=== PATIENT | female | born 1985 | race Caucasian/White ===

== ENCOUNTER 2017-11-15 00:04 | Inpatient (IN) | payer OTHER ==
[~2017-11-15] VITALS: Ht 175.3 cm; Wt 77.1 kg
[2017-11-15 20:03] LABS: *URINE HCG, QUAL NEGATIVE (NEGATIVE)
[2017-11-15 20:17] LABS: *AMPHETAMINE, URINE NEGATIVE (NEGATIVE); *BARBITURATE, URINE NEGATIVE (NEGATIVE); *CANNABINOID, URINE POSITIVE (NEGATIVE); *COCCAINE, URINE NEGATIVE (NEGATIVE); *OPIATE, URINE NEGATIVE (NEGATIVE); *PHENCYCLIDINE SCREEN,URINE NEGATIVE (NEGATIVE)
--- NOTE | 2017-11-15 20:30 | NUR ---
Pre-admission Assessment Patient is a 32-year old, female, seen at intake, AAOx4, no SOB and with anxiety, flushed skin, sweating and tremors noted at this time. Patient also observed to be fidgety and appears tense. Patient verbalized that she feels tired. Discussed with patient admission policies of the unit. Patient is coherent and able to respond to questions appropriately. Pt is ambulatory with steady gait. Patient reported she uses mainly Xanax daily for 7 years and only was drinking [place] Iced Tea and snorting Cocaine from 11/09/2017 to 11/12/2017. Vital signs taken and as follows: KB=764/70, P=79, O2 sat on RA=98%, RR=20, T=98.4. Pt verbalized instructions and teachings regarding disposal of narcotic and other controlled home meds, unit protocols such as taking of vital signs Q4H and handling and disposal of contraband.
[2017-11-15 21:00] VITALS: BP 124/70
--- NOTE | 2017-11-15 21:30 | NUR ---
Admission Note Patient is a 32-year-old, female, arrived to the floor at 2117 to be admitted for medically supervised withdrawal from Benzodiazepines (Xanax). The patient does not appear intoxicated and patient verbalized that she is starting to experience withdrawal symptoms as well as symptoms as per wine sales representative, as follows: flushed skin, increasing anxiety, easily agitated, tremors, sweating and feeling of fatigue. Patient appears calm but noted to be melancholic, isolative and in a depressed mood. Pt is AAOx4, and verbalized ""I want to get off my addiction and clear my head." The patient states that withdrawal symptoms include "anxiety, emotional volatility, nausea, vomiting, flushed skin, sweating, hot flushes, agitated and confusion." Patient stated that she has a history of withdrawal-induced seizures from Benzodiazepines withdrawal. First time she had a seizure was when she was 18 years old and the last time she had one was in 2014. Overall, patient stated that she had about 10-15 seizures. Patient also informed that she has only been to 1 detox and treatment center, [facility], for 3 times. First time was in 2011 for treatment and stayed for 1 month. The second time was in 2013 and stayed for 3 months. The last was in 2014 and stayed for 1 week because she was only there for detox. A week after being discharged, patient verbalized that she relapsed. Patient states current substance use as follows: 1. Xanax- Patient stated that she first used at age 18 and for the past 7 years, she has been using 6-8 mg PO daily. Last use was on the night before admission, 11/14/2017 in the evening, 8 mg PO. 2. Alcohol- Patient stated that she only consumed [place] Iced Tea from 11/09/2017 to 11/12/2017. She was consuming about "4-5 glasses" every night on the said days. She first had a drink at age 13. Before this drinking episode, patient verbalized that she was not drinking for over a year. Last drink was on 11/12/2017, 5 glasses of [place] Iced Tea. 3. Cocaine- Patient stated that she first used at age 15. She verbalized that she has not been using this substance for over a year and only used between 11/09/17 to 11/12/17 because she was drinking. Per patient, she was snorting about 1 gm per night and last used on 11/12/2017 evening time. 4. Cannabis-Patient stated that she first used at age 13. Patient stated that she only smokes this substance about 1-3 times in a year. Last use was on 11/12/2017, evening time. Of note, patient was previously using Heroin, had a history of Heroin overdose in 2009 and has been sober since then. She stated her mother sells narcotics and benzodiazepines illegally and that's the reason why she was introduced to Xanax early on. Her sister from Heroin OD last 2010 thus she was presribed Xanax by her doctor 0.25 mg daily PRN. Eventually, she started to "abuse" the medication up until her current level of dose. Patient not able to recall name of Primary Care Physician. She is seeking treatment today because ""I feel like if I don't go for detox, I will sink deeper and lose everything that I have worked hard for in the past several years." Patient stated that she loves her job and fears that her addiction will interfere with her keeping her job. Patient verbalized: "I don't want to lose my job just because of my addiction. I love my job and I want to stop this before it spirals down." His longest sobriety was 3 months, achieved in 2013 when she was at [facility]. Patient admitted that "When I started drinking and using Cocaine last weekend, I felt like that was the start of me losing control. I don't want to go back to the dreaded years in my early 20s." Patient verbalized that she is interested in going to a treatment center after his stay at [facility]. Patient's main support system are her 2 sisters and friends. Vital signs are taken and as follows: BP: 124/70, HR: 79, RR: 20, SpO2: 98%, Temp: 98.4. Patient c/o nausea but refused PRN medication at this time. Pulse is palpable and regular. Respirations are even and unlabored. Lung sounds clear. Bowel sounds active x4 quadrants. Last bowel movement was in the afternoon of 11/14/2017. Per patient, her bowel movement is mostly every other day. Skin is intact. Pt follows a regular diet at home. NKA. Full Code. Height is 5'9", 170 lbs per standing scale. Patient stated that she smokes about 1/2 to 1 pack of cigarettes daily. Patient stated that she has no Psychiatrist and she is not able to recall her Primary Care Physician. Pt stated that her medical history besides Withdrawal-induced Seizures are Anxiety, Depression, Kidney stones, Heroin Overdose (2009), 5150 in 2009 related to Heroin Overdose and Thyroid Cancer to which she has Thyroidectmomy in 2010 which was followed by Chemotherapy and Radation. No c/o abdominal pain at this time. Home meds were reconciled. Educated patient about plan of care including detox, group therapy, individual therapy, and discharge planning. Encouraged patient to be open and honest and verbalized support for patient in her recovery. Upon admission to the floor, CIWA=11. Dr. Pichardo was at the unit and was able to assess the patient. Will continue to monitor.
[2017-11-15] MEDS ORDERED: LEVO112T5 PO (21:56)
[2017-11-15] MEDS ORDERED: CYAN10009 PO (21:56)
[2017-11-15] MEDS ORDERED: LORAZEPAM 1 MG TABLET PO PRN ×2 (22:45)
[2017-11-15] MEDS ORDERED: LORAZEPAM 2 MG/1 ML VIAL IM PRN (22:45)
[2017-11-15] MEDS ORDERED: LOPERAMIDE HCL 2 MG CAPSULE PO PRN ×2 (22:45)
[2017-11-15] MEDS ORDERED: MAG HYDROX/AL HYDROX/SIMETH 30 ML LIQUID UDC PO PRN (22:45)
[2017-11-15] MEDS ORDERED: ACETAMINOPHEN 325 MG TABLET PO PRN (22:45)
[2017-11-15] MEDS ORDERED: DICYCLOMINE HCL 20 MG TABLET PO PRN (22:45)
[2017-11-15] MEDS ORDERED: MIRALAX 17 GM POWD.PACK PO PRN (22:45)
[2017-11-15 22:54] LABS: BASOPHILS # (AUTO) 0.1 K/uL (0.0-8.0); BASOPHILS % (AUTO) 0.7 % (0.0-2.0); EOSINOPHILS # (AUTO) 0.1 K/uL (0.0-0.7); EOSINOPHILS % (AUTO) 0.9 % (0.0-7.0); HEMOGLOBIN 11.9 g/dL (10.9-14.3); LYMPHOCYTES # (AUTO) 1.3 K/uL (20.0-40.0); LYMPHOCYTES % (AUTO) 16.3 % (20.5-51.5); MEAN CORPUSCULAR HEMOGLOBIN 26.1 uug (24.7-32.8); MEAN CORPUSCULAR HGB CONC 33 g/dL (32.3-35.6); MEAN CORPUSCULAR VOLUME 78.6 fL (75.5-95.3); MONOCYTES # (AUTO) 0.5 K/uL (2.0-10.0); MONOCYTES % (AUTO) 6.7 % (0.0-11.0); NEUTROPHILS # (AUTO) 6.1 K/uL (1.8-8.9); NEUTROPHILS % (AUTO) 75.4 % (38.5-71.5); PLATELET COUNT (AUTO) 277 K/uL (179-408); RED BLOOD CELL COUNT(AUTO) 4.58 MIL/uL (3.63-4.92); WHITE BLOOD COUNT (AUTO) 8.1 K/uL (3.8-11.8)
[2017-11-15 23:08] LABS: BILIRUBIN,TOTAL 0.2 mg/dL (0.2-1.0); CREATININE 0.7 mg/dL (0.6-1.3); MAGNESIUM 2.1 mg/dL (1.8-2.4); POTASSIUM 3.4 mmol/L (3.5-5.1); TOTAL PROTEIN, SERUM 7.1 g/dL (6.4-8.2)
[2017-11-15] MEDS ORDERED: LORAZEPAM 1 MG TABLET PO ONE (23:30)
[2017-11-15] MEDS ORDERED: POTASSIUM CHLORIDE 20 MEQ TAB.PRT.SR PO ONE (23:30)
[2017-11-16] VITALS: BP 118/65
[2017-11-16] MEDS ORDERED: TRAZODONE 50 MG TABLET PO ONE
--- NOTE | 2017-11-16 00:20 | NUR ---
RN note KDur and Trazodone Patient's K level=3.4, replaced with KDur 40 MEQs PO once. Patient also verbalized inability to sleep. MD ordered Trazodone 50 mg PO once.
[2017-11-16 01:16] LABS: THYROID STIMULATING HORMONE 0.079 mIU/mL (0.358-3.740)
[2017-11-16 04:00] VITALS: BP 110/69
--- NOTE | 2017-11-16 07:11 | NUR ---
End of Shift Patient verbalized "feeling comfortable" at this time. Patient noted to be increasingly anxious, with blunted affect and poor concentration. Patient has a depressed mood and is melancholic. Fall, universal, seizure and safety precautions in place. Call light within reach. Latest CIWA-7, slept for . Endorsed to AM shift nurse for continuity of care.
--- NOTE | 2017-11-16 07:55 | NUR ---
Start of Shift Note Pt. is a 32 y/o female admitted for the medically managed withdrawal from Benzodiazepines. Pt. was placed on a 6 day Phenobarbital taper to manage withdrawal symptoms. Pt. has a history of withdrawal induced seizures, heroin overdose, depression, and anxiety. Endorse pt.s behavior from previous shift as anxious, depressed with a blunted affect. Pt. received in room. Pt. laying in bed with eyes open. Pt. rooms is cluttered with personal belongings and pt. is disheveled. Pt. presents a anxious, restless, and medication focused. Educated pt. on treatment plan medication regiment. Pt. verbalized understanding. Pt. A/O X 4 at this time. Encouraged pt. to verbalize concerns and emotions. Last CIWA of 7. Safety measures in place. Will continue to monitor pt.s behavior for safety.
[2017-11-16 08:00] VITALS: BP 133/83
--- NOTE | 2017-11-16 08:00 | NUR ---
CIWA Assessment/MD communication Pt. presents as restless, anxious, diaphoresis, and agitated. Pt is complaining of mild nausea. CIWA at this time 17. MD aware. Will continue to monitor for safety.
[2017-11-16] MEDS: PHENOBARBITAL 60 MG TABLET PO SCH ×4 (08:52→21:32)
[2017-11-16] MEDS: MULTIVITAMINS,THERAPEUTIC TABLET PO SCH (08:52)
[2017-11-16] MEDS ORDERED: TUBERCULIN,PURIF.PROT.DERIV. 5 TU/0.1 ML TEST ID ONE (09:00)
[2017-11-16] MEDS ORDERED: 6 DAY PHENOBARBITAL TAPER -SERENITY PROTOCOL PO PRN (09:00)
[2017-11-16] MEDS: HYDROXYZINE PAMOATE 25 MG CAPSULE PO PRN (10:07)
[2017-11-16] MEDS: CLONIDINE HCL 0.1 MG TABLET PO PRN (10:07)
--- NOTE | 2017-11-16 10:07 | NUR ---
PRN Medication Pt. reports increased feelings of anxiety, and states she feels a a sense of dread. Pt. is siting on her bed constantly moving her legs. Gave pt. Clonidine 0.1mg and Vistaril 50mg at this time to manage withdrawal symptoms. Will continue to monitor pt.'s behavior for safety and medication effectiveness.
--- NOTE | 2017-11-16 11:07 | NUR ---
PRN Medication Re-Assessment Pt. in bed reading a book and able to sit still. Pt. states she feels much better. Medication effective. Will continue to monitor pt.'s behavior for safety.
[2017-11-16 12:00] VITALS: BP 128/72
--- NOTE | 2017-11-16 12:00 | NUR ---
REBEKAH Assessment/MD communication Pt. presents with agitation, anxiety, diaphoresis, and restlessness. Pt. still complains of mild nausea. REBEKAH Jason MD aware. Will continue to monitor pt.'s behavior for safety.
[2017-11-16 16:00] VITALS: BP 93/55
--- NOTE | 2017-11-16 16:00 | NUR ---
WA Assessment/MD communication Pt. still complains of anxiety and agitations but now denies any feelings of nausea. Pt. still presents with a diaphoretic brow and restlessness CIWA 14. MD aware. Will continue to monitor pt. for safety.
--- NOTE | 2017-11-16 19:27 | NUR ---
End of Shift Note Pt. is a 32 y/o female admitted for the medically managed withdrawal from Benzodiazepines. Pt. was placed on a 6 day Phenobarbital taper to manage withdrawal symptoms. Pt. has a history of withdrawal induced seizures, heroin overdose, depression, and anxiety. Pt. presented throughout shift with anxiety restlessness, agitation and diaphoresis. Pt. compliant with treatment plan and medication regiment. Pt. given PRN Vistaril, and Clonidine to manage her withdrawal symptoms. Last CIWA of 14. Safety measures in place. Will endorse pt.s care to oncoming shift.
[2017-11-16 20:00] VITALS: BP 104/58
--- NOTE | 2017-11-16 20:00 | NUR ---
Start of Shift Note Received a 32 y/o female px, admitted for medically supervised withdrawal from Xanax, and ETOH. Px was placed on 6 day Phenobarbital taper started 11/16/2017. Px is tolerating it. Last reported CIWA 14 by AM shift nurse. During the rounds at 2000, px is awake on bed in fowlers position, watching TV. Px appears anxious with good eye contact. Few drinks noted on top of the bed side table. Px stated My anxiety is 5/10. I dont have pain but I have restless legs. The doctor just came here and he agreed to give me Trazodone tonight. Px also complained of flush/chills and irritation like under her skin. Bed on lowest position, side rails up 2x, and call light within reach. Well continue to monitor.
--- NOTE | 2017-11-16 20:00 | NUR ---
CIWA 11 Px stated that her anxiety is 5/10, has mild irritation sensation underneath her skin. Px also complained of flush/chills,and sweats.
[2017-11-16] MEDS: MAGNESIUM HYDROXIDE 30 ML LIQUID UDC PO PRN (21:32)
--- NOTE | 2017-11-16 21:32 | NUR ---
PRN MOM Px received milk of magnesia 30 ml PO for 4 days constipation. We'll continue to monitor.
--- NOTE | 2017-11-16 22:08 | NUR ---
MD COMMUNICATION Pt requesting Trazodone for sleep. MD ordered Trazodone 50 mg QHS. Order noted and carried out.
--- NOTE | 2017-11-16 22:32 | NUR ---
Reassessment of CIWA CIWA 11. Px stated that her anxiety is stiil moderate, has mild irritation sensation underneath her skin and complained of flush/chills,and sweats.
[2017-11-16] MEDS: TRAZODONE 50 MG TABLET PO SCH (23:19)
--- NOTE | 2017-11-16 23:19 | NUR ---
New Order Trazodone. Px received Trazodone 50 mg/tab, 1 tab HS PO for insomnia. We'll continue to monitor.
[2017-11-17] VITALS: BP 121/77
--- NOTE | 2017-11-17 | NUR ---
CIWA 10 Px stated that her anxiety is still there, has mild irritation sensation underneath her skin. Px also complained of flush/chills,and sweats.
[2017-11-17 04:00] VITALS: BP 118/71
--- NOTE | 2017-11-17 04:00 | NUR ---
CIWA deferred CIWA deferred due to the px is asleep, to assess if the px is awake per doctor's order. We'll continue to monitor.
--- NOTE | 2017-11-17 07:10 | NUR ---
End of Shift Note During the shift at 2132, px received MOM 30 ml as PRN medication for 4 days constipation. At 2319, new order Trazodone 50 mg HS started and given PO. Px oral intake is 1500 ml, voided 4x, with No BM. Px slept for 7 hours. At 0630, px is asleep on bed in left side lying position. Last CIWA 10. Bed on lowest position, side rails up 2x, and call light within reach. Well continue to monitor. Px endorsed to AM shift nurse.
[2017-11-17 08:00] VITALS: BP 112/60
--- NOTE | 2017-11-17 08:15 | NUR ---
START OF SHIFT: Received Pt. A/O X 4. She presents with anxious mood and congruent affect. She is disheveled. She is hyperverbal. Phenobarbital taper in progress to manage s/s of w/d. CIWA 10. She reports anxiety , intermittent sweats,restlessness and irritability. She states her appetite is fair.She is fidgety. Encouraged increased fluids to assist in facilitating detox process. Encouraged group attendance to improve coping skills and prevent relapse.Will continue to monitor and offer support.
[2017-11-17] MEDS ORDERED: LEVOTHYROXINE SODIUM 112 MCG TABLET PO SCH ×2 (09:00)
[2017-11-17] MEDS: MULTIVITAMINS,THERAPEUTIC TABLET PO SCH (09:24)
[2017-11-17] MEDS: PHENOBARBITAL 60 MG TABLET PO SCH ×3 (09:24→20:54)
[2017-11-17 12:00] VITALS: BP 143/86
--- NOTE | 2017-11-17 12:00 | NUR ---
CIWA 10 She is fidgety with fine tremors. She c/o intermittent sweats,restlessness and anxiety.
--- NOTE | 2017-11-17 12:35 | NUR ---
Verbal Communication: New order to increase dose of Synthroid from 112mcg PO daily to 224mcg PO daily. New order noted and carried out.
[2017-11-17] MEDS: HYDROXYZINE PAMOATE 25 MG CAPSULE PO PRN (14:30)
--- NOTE | 2017-11-17 14:32 | NUR ---
PRN Vistaril 50 mg PO given for reported anxiety and restlessness.
--- NOTE | 2017-11-17 15:32 | NUR ---
PRN Vistaril effective. She states she feels less anxious. Will continue to monitor
[2017-11-17 16:00] VITALS: BP 159/89
--- NOTE | 2017-11-17 16:00 | NUR ---
CIWA 12. She c/o anxiety,restlessness ,sweats and irritability.
--- NOTE | 2017-11-17 18:45 | NUR ---
END OF SHIFT: Pt continues on Phenobarbital taper to manage s/s of w/d which include anxiety,restlessness ,fine tremors,intermittent sweats and irritability. CIWA 12. She attended some groups and interacted with peers. She was compliant with increased fluids and had a bowel movement. Sz precautions noted. Will pass shift report to oncoming night nurse.
--- NOTE | 2017-11-17 19:30 | NUR ---
START OF SHIFT Patient is a 32-year-old female admitted on 11/15/17 for benzodiazepine withdrawal. Patient is currently on a 6-day Phenobarbital taper, tolerating well; today is day 2. Per endorsement, patient's last CIWA was 12. Patient received PRN Vistaril today as well as PRN Miralax; Vistaril noted to be effective, Miralax mildly effective. Upon assessment, patient is alert and oriented x4. Patient reports feeling anxious and restless, mild generalized body aches and mild headache as well. Patient is on fall and seizure precautions with her most recent seizure being 2014, related to benzo withdrawal. Safety measures are in place, side rails up x2, bed locked in low position, call light within reach. Will continue to monitor.
[2017-11-17 20:00] VITALS: BP 140/90
--- NOTE | 2017-11-17 20:00 | NUR ---
CIWA Patient has a current CIWA score of 15. She complains of anxiety, restlessness, intermittent nausea, headache 4/10 and generalized body aches.
[2017-11-17] MEDS: MAGNESIUM HYDROXIDE 30 ML LIQUID UDC PO PRN (20:54)
--- NOTE | 2017-11-17 20:54 | NUR ---
PRN MILK OF MAG Patient reports that she has been constipated for "the past five days." She says that she had a "very small" BM earlier today but continues to feel constipated. PRN MOM given PO. Safety measures in place, side rails up x2, bed locked in low position, call light within reach. Will monitor for effectiveness.
--- NOTE | 2017-11-17 21:54 | NUR ---
PRN MILK OF MAG REASSESSMENT Patient states that she has not had a BM since taking MOM at 2053. SN encouraged patient to drink plenty of fluids. Safety measures in place, side rails up x2, bed locked in low position, call light within reach. Will continue to monitor.
[2017-11-17] MEDS: TRAZODONE 50 MG TABLET PO SCH (22:35)
[2017-11-18] VITALS (7 sets, daily range): BP systolic 109–156; BP diastolic 66–104
--- NOTE | 2017-11-18 | NUR ---
CIWA DEFERRED CIWA deferred at this time due to patient sleeping; to be assessed and scored while patient is awake. Safety measures in place, side rails up x2, bed locked in low position, call light within reach. Will continue to monitor.
--- NOTE | 2017-11-18 04:00 | NUR ---
CIWA DEFERRED CIWA deferred due to patient sleeping; will be assessed and scored when patient is awake. Safety measures in place, side rails up x2, bed locked in low position, call light within reach. Will continue to monitor.
[2017-11-18] MEDS: LEVOTHYROXINE SODIUM 112 MCG TABLET PO SCH (06:36)
--- NOTE | 2017-11-18 07:12 | NUR ---
END OF SHIFT Patient is a 32-year-old female admitted on 11/15/17 for benzodiazepine withdrawal. Patient is currently on a 6-day Phenobarbital taper, tolerating well; today will be day 3. Patient's last CIWA was 15. Patient received PRN Milk of Magnesia for constipation; noted to be effective. Patient slept for 8 hours, total intake of 1,535mL, void x3, stool x1. Patient is on fall and seizure precautions with her most recent seizure being 2014, related to benzo withdrawal. Safety measures are in place, side rails up x2, bed locked in low position, call light within reach. Will endorse to day shift.
--- NOTE | 2017-11-18 07:45 | NUR ---
START OF SHIFT Pt is a 32 yr old female, AA&Ox4. Pt was admitted on 11/15/17 for Benzo withdrawal and is on 6 day Phenobarbital taper as ordered. medication siva well. Received report from police shift commander nurse. Pt received MOM PRN for constipation. Medication was effective, pt was able to have BM x1. Last CIWA score was 15 at 1999. Pt is currently c/o fatigue, anxiety and headache. Pt states she had difficulty sleeping during the night and was restless. Skin is intact, warm and moist to touch. Pt was encouraged increase fluid intake. Safety precautions observed. Call light is within reach. Will continue to monitor.
[2017-11-18] MEDS: PHENOBARBITAL 60 MG TABLET PO SCH ×4 (09:21→21:24)
[2017-11-18] MEDS: MULTIVITAMINS,THERAPEUTIC TABLET PO SCH (09:21)
[2017-11-18] MEDS: CLONIDINE HCL 0.1 MG TABLET PO PRN ×2 (13:11→21:56)
--- NOTE | 2017-11-18 13:14 | NUR ---
Client was prompted to attend daily group counseling sessions.
--- NOTE | 2017-11-18 13:15 | NUR ---
PRN GIVEN pt was noted with increase BP of 156/104. Pt stated of having increase anxiety after group. Clonidine 0.1mg PO PRN was given for increase BP and anxiety. Medication siva well. Will continue to monitor.
--- NOTE | 2017-11-18 14:15 | NUR ---
PRN RE-ASSESSMENT Clonidine was effective. Pt's BP was 145/89 and pt states anxiety level subsided. Will continue to monitor.
--- NOTE | 2017-11-18 19:20 | NUR ---
END OF SHIFT Pt is a 32 yr old female, AA&Ox4. Pt was admitted on 11/15/17 for Benzo withdrawal and is on 6 day Phenobarbital taper as ordered. medication siva well. Pt has been cooperative with medication regimen and plan of care. Pt has been observed attending group therapy during the day. Pt has been noted with increase anxiety and was noted with episodes of crying. Pt stated group therapy triggered some emotions. Pt was noted with fine tremors on BUE. Pt received Clonidine 0.1mg PO PRN for increase BP and anxiety. Medication was effective. Last CIWA score was 12 at 1600. Pt was encouraged increase fluid intake for hydration. Safety precautions observed. Call light is within reach. Endorsed to double end trimmer nurse to continue with care.
--- NOTE | 2017-11-18 19:27 | NUR ---
START OF SHIFT Patient is a 32-year-old female admitted on 11/15/17 for benzodiazepine withdrawal. Patient is currently on a 6-day Phenobarbital taper, tolerating well; today is day 3. Per endorsement, patient's last CIWA was 12. Patient received PRN Clonidine for increased BP. Upon assessment, patient is alert and oriented x4, tearful and emotional. Patient states that today was definitely harder than I expected. I forgot all about the emotional part of detox. Patient reports that earlier today she snapped at someone and was embarrassed. She apologized but then felt uncomfortable for the rest of the day. Patient reports feeling anxious and restless, wanting to leave but stating I know its good that Im here. Patient also reports a constant headache but states, It might just be all the cigarettes I smoked today. Patient is on fall and seizure precautions with her most recent seizure being 2014, related to benzo withdrawal. Safety measures are in place, side rails up x2, bed locked in low position, call light within reach. Will continue to monitor.
--- NOTE | 2017-11-18 20:00 | NUR ---
CIWA 15 Patient has a current CIWA of 15; she reports feeling anxious and agitated, complains of headache, fine tremors and diaphoresis noted. Will administer meds as ordered and will continue to monitor.
[2017-11-18] MEDS: TRAZODONE 50 MG TABLET PO SCH (21:56)
--- NOTE | 2017-11-18 21:56 | NUR ---
PRN CLONIDINE Patient was noted to have elevated blood pressure, 138/100 with HR of 80. Patient also reports anxiety and agitation. PRN Clonidine 0.1mg given PO. Safety measures in place, side rails up x2, bed locked in low position, call light within reach. Will monitor for effectiveness.
--- NOTE | 2017-11-18 22:56 | NUR ---
PRN CLONIDINE REASSESSMENT Patient reports that she feels "a little more relaxed" and is ready to sleep. Current BP is 126/82, HR 74, respirations even and unlabored at this time. PRN Clonidine effective. Safety measures in place, side rails up x2, bed locked in low position, call light within reach. Will continue to monitor.
[2017-11-19] VITALS: BP 122/75
--- NOTE | 2017-11-19 | NUR ---
CIWA DEFERRED CIWA deferred at this time due to patient sleeping; to be assessed and scored while patient is awake. Safety measures in place, side rails up x2, bed is locked in lowest position, call light within reach. Will continue to monitor.
--- NOTE | 2017-11-19 02:30 | NUR ---
CIWA 13 Patient is awake, reading her book. Current CIWA 13 for anxiety, agitation/restlessness, mild headache, fine tremors, and on/off sweating. Will continue to monitor.
[2017-11-19 04:00] VITALS: BP 111/65
--- NOTE | 2017-11-19 04:00 | NUR ---
CIWA DEFERRED CIWA deferred at this time due to patient sleeping; to be assessed and scored while patient is awake, per protocol. Safety measures are in place, side rails up x2, bed locked in low position, call light within reach. Will continue to monitor.
--- NOTE | 2017-11-19 06:00 | NUR ---
END OF SHIFT Patient is a 32-year-old female admitted on 11/15/17 for benzodiazepine withdrawal. Patient is currently on a 6-day Phenobarbital taper, tolerating well; today will be day 4 of taper. Patients last CIWA was 13. Patient received PRN Clonidine last night for anxiety and agitation; noted to be effective. Patient slept for 5 hours, total intake of 1,800mL, void x4, stool x0. Patient is on fall and seizure precautions with her most recent seizure being 2014, related to benzo withdrawal. Safety measures are in place, side rails up x2, bed locked in low position, call light within reach. Endorsed to Teresa Melgoza LVN, at 0600.
[2017-11-19 06:07] LABS: HEPATITIS B SURFACE AG Negative (Negative)
[2017-11-19] MEDS: LEVOTHYROXINE SODIUM 112 MCG TABLET PO SCH (06:50)
[2017-11-19] MEDS: IBUPROFEN 600 MG TABLET PO PRN ×2 (07:50→19:56)
--- NOTE | 2017-11-19 07:50 | NUR ---
PRN GIVEN Pt c/o headache 07/13. Facial grimacing is observed. Motrin 600mg PO PRN was given as ordered. Encouraged increase fluid intake. Will continue to monitor.
[2017-11-19 08:00] VITALS: BP 127/76
--- NOTE | 2017-11-19 08:00 | NUR ---
START OF SHIFT Pt is a 32 yr old female, AA&Ox4. Pt was admitted on 11/15/17 for Benzo withdrawal and is on 6 day Phenobarbital taper as ordered. medication siva well. Received report from date night caregiver nurse. Pt received Clonidine for anxiety. Medication was effective. Last CIWA score was 13 at 0230.Pt slept for 5 hrs during the night. Pt is currently c/o increase anxiety and headache 3/10 this morning. Pt states she had difficulty sleeping during the night and was restless. Skin is intact, warm and moist to touch. Pt was encouraged increase fluid intake. Safety precautions observed. Call light is within reach. Will continue to monitor.
--- NOTE | 2017-11-19 08:50 | NUR ---
PRN RE-ASSESSMENT Motrin PRN was effective. Pt states, "My headache went away". Will continue to monitor.
[2017-11-19] MEDS: MULTIVITAMINS,THERAPEUTIC TABLET PO SCH (08:55)
[2017-11-19] MEDS: PHENOBARBITAL 60 MG TABLET PO SCH ×3 (08:55→20:55)
[2017-11-19] MEDS: CLONIDINE HCL 0.1 MG TABLET PO PRN (10:32)
[2017-11-19] MEDS: HYDROXYZINE PAMOATE 25 MG CAPSULE PO PRN (10:32)
--- NOTE | 2017-11-19 10:33 | NUR ---
PRN GIVEN Pt is c/o increase anxiety and headache 10/13. Pt was noted emotional and was observed crying in her room. Pt states, "I don't know why but I feel really anxious". Pt was given Vistaril 50mg PO PRN, Clonidine 0.1mg PO PRN and Tylenol 650mg PO PRN as ordered. medication siva well. Encouraged increase fluid intake for hydration. Will continue to monitor.
--- NOTE | 2017-11-19 11:33 | NUR ---
PRN RE-ASSESSMENT Tylenol PO PRN, Vistaril PO PRN and Clonidine 0.1mg PO PRN was effective. pt denies an headache at this time. Pt continues to c/o anxiety but states she is able to cope with her anxiety level. Will continue to monitor.
[2017-11-19 12:00] VITALS: BP 136/82
--- NOTE | 2017-11-19 14:27 | NUR ---
Client was prompted to attend twice daily group therapy sessions.
[2017-11-19 16:00] VITALS: BP 118/76
--- NOTE | 2017-11-19 18:55 | NUR ---
END OF SHIFT Pt is a 32 yr old female, AA&Ox4. Pt was admitted on 11/15/17 for Benzo withdrawal and is on 6 day Phenobarbital taper as ordered. medication siva well. Pt has been cooperative with medication regimen and plan of care. Pt has been observed attending group therapy during the day. Pt has been noted with increase anxiety and agitation in the morning and was noted with episodes of crying. Pt was also c/o headache, sweats and chills. Pt was given Motrin 600mg PO PRN at 0750 and Tylenol 650mg PO PRN at 1032, Vistaril 50mg PO PRN at 1032 and Clonidine 0.1mg PO PRN at 1032. Medication was effective. Last CIWA score was 8 at 1600. Pt was encouraged increase fluid intake for hydration. Safety precautions observed. Call light is within reach. Endorsed to maintenance supervisor 2nd shift nurse to continue with care.
--- NOTE | 2017-11-19 19:30 | NUR ---
START OF SHIFT Pt is a 32y/o female admitted on 11/15/17 for Benzo withdrawal . Pt started a 6 day Phenobarbital on 11/16/17, tolerating well. Last CIWA 8. PRN Motrin, Tylenol, Clonidine, Vistaril administered during day shift. Upon assessment Pt presents with headache, anxiety, restlessness, difficulty falling asleep, emotional liability, intermittent sweats, poor appetite. Medications due. Safety measures in place. Call light within reach. Will continue to monitor.
--- NOTE | 2017-11-19 19:56 | NUR ---
PRN JOSE FRANCISCO Pt complains of a 2/10 pressure headache. Safety measures in place. Call light within reach. Will continue to monitor.
[2017-11-19 20:00] VITALS: BP 157/99
[2017-11-19] MEDS: TRAZODONE 50 MG TABLET PO SCH (20:55)
--- NOTE | 2017-11-19 20:56 | NUR ---
PRN MOTRIN REASSESSMENT Pt denies any headache at this time. Pt resting comfortably. Pt states headache is 0/10. Safety measures in place. Call light within reach. Will continue to monitor
[2017-11-19] MEDS: diphenhydrAMINE 50 MG CAPSULE PO PRN (22:16)
--- NOTE | 2017-11-19 22:16 | NUR ---
PRN BENADRYL ADMINISTRATION Pt request sleeping aid. Safety measures in place. Call light within reach. Will continue to monitor
--- NOTE | 2017-11-19 23:16 | NUR ---
PRN BENADRYL REASSESSMENT Pt resting in bed with eyes closed. Medication noted effective. Respiration even and unlabored. Safety measures in place. Call light within reach. Will continue to monitor.
--- NOTE | 2017-11-20 | NUR ---
CIWA DEFERRED AND VITALS REFUSED Pt laying in bed with eyes closed, CIWA deferred, to be assessed when pt is awake per orders. Vitals refused. Respirations even and unlabored. Safety measures in place. Call light within reach. Will continue to monitor.
[2017-11-20] MEDS: LEVOTHYROXINE SODIUM 112 MCG TABLET PO SCH (06:58)
--- NOTE | 2017-11-20 07:14 | NUR ---
END OF SHIFT Pt is a 32 y/o female admitted on 11/15/17 for Benzo withdrawal . Pt started a 6 day Phenobarbital on 11/16/17, tolerating well. Pt presented with headache, anxiety, restlessness, difficulty falling asleep, elevated blood pressure, emotional liability, intermittent sweats, poor appetite. Scheduled medication and PRN Motrin and Benadryl administered, effective in S/S of withdrawal as verbalized by Pt. Last CIWA 14. Pt slept 6 hours. Intake 750 ml, void x 2, stool x 0. Safety measures in place. Call light within reach. Pt's needs have been met. Endorsed to day shift nurse.
--- NOTE | 2017-11-20 07:40 | NUR ---
START OF SHIFT Pt is a 32 yr old female, AA&Ox4. Pt was admitted on 11/15/17 for Benzo withdrawal and is on 6 day Phenobarbital taper as ordered. medication siva well. Received report from certified technician specialist nurse. Pt received Motrin PRN and Benadryl PO PRN during the night. Medication was effective. Last CIWA score was 14. Pt slept for 6 hrs during the night. Pt is currently c/o anxiety, headache and sweats. Skin is intact, warm and moist to touch. Pt was encouraged increase fluid intake. Safety precautions observed. Call light is within reach. Will continue to monitor.
--- NOTE | 2017-11-20 08:00 | NUR ---
CIWA 7 CIWA score 7 for anxiety, agitation, sweats and headache
[2017-11-20 08:04] VITALS: BP 107/62
[2017-11-20] MEDS: MULTIVITAMINS,THERAPEUTIC TABLET PO SCH (08:51)
[2017-11-20] MEDS: PHENOBARBITAL 60 MG TABLET PO SCH ×2 (08:51→21:02)
[2017-11-20 12:00] VITALS: BP 129/84
[2017-11-20 16:30] VITALS: BP 164/105
[2017-11-20] MEDS: HYDROXYZINE PAMOATE 25 MG CAPSULE PO PRN (16:36)
[2017-11-20] MEDS: CLONIDINE HCL 0.1 MG TABLET PO PRN (16:37)
--- NOTE | 2017-11-20 16:37 | NUR ---
PRN GIVEN Pt was noted with increase BP of 164/105 and HR is 105. Pt states of feeling anxious. Clonidine 0.1mg PO PRN and Vistaril 50mg PO PRN was given as ordered. Encouraged increase fluid intake. Will continue to monitor.
--- NOTE | 2017-11-20 16:42 | NUR ---
Therapist prompted client to attend twice daily group therapy sessions.
--- NOTE | 2017-11-20 17:50 | NUR ---
PRN REASSESSMENT Clonidine 0.1mg PO PRN and Vistaril 50mg PO PRN was effective. BP was 125/87 and HR is 80. Pt states of still having anxiety but is able to cope with anxiety level. Will continue to monitor.
--- NOTE | 2017-11-20 19:00 | NUR ---
START OF SHIFT NOTE: The patient is a 32 year old female alert and oriented x4, ambulatory with stable gait. The patient presented for Benzodiazepines (Xanax), ETOH ([place] Iced Tea), Cocaine, and Cannabis smoke withdrawal, continues ordered 6 day Phenobarbital Taper, which tolerated well. The patient is cooperative, and has clear speech. She appears worried with labile affect and anxious mood. Emotional support and reassuring provided. The patient encouraged to express her feelings. The patient presented for Benzodiazepines (Xanax), ETOH ([place] Iced Tea), Cocaine, and Cannabis smoke withdrawal The patient continues ordered 6 day Phenobarbital Taper, which tolerated well. The most recent CIWA=13 at 1600: The patient presented with moderate withdrawal symptoms of anxiety, agitation, nervousness, irritability, sweating, abdominal cramps, restlessness, tremors, and fatigue. Respirations are even and unlabored. Patient denies SOB, chest pain, and cough. Skin is intact, warm, and dry to touch. PRN Clonidine PO administrated for BP: 164/105 at 1637 was effective, and BP decreased to 125/87 at 1737. PRN Vistaril PO administrated for anxiety at 1637, and was effective. The patient remains compliant with treatment, medications, and diet regime. Encouraged to fluids intake as tolerated. Encouraged to attend group activities. Safe and calm environment with minimized noises was provided. All needs met. Safety measures: Call light within reach, bed is locked in lowest position, and padded bed rails up bilaterally. The patient endorsed by outgoing day shift nurse. Will continue to monitor closely.
--- NOTE | 2017-11-20 19:00 | NUR ---
END OF SHIFT Pt is a 32 yr old female, AA&Ox4. Pt was admitted on 11/15/17 for Benzo withdrawal and is on 6 day Phenobarbital taper as ordered. medication siva well. Pt has been cooperative with medication regimen and plan of care. Pt has been observed attending group therapy during the day. Pt c/o anxiety, agitation, sweats and a headache. Pt was noted with increase BP at 1630. Pt received Clonidine 0.1mg PO PRN and Vistaril 50mg PO PRN for increase BP and anxiety. Medication was effective. Last BP was 125/87 at 1750. Last CIWA score was 13 at 1600. Pt was encouraged increase fluid intake for hydration. Safety precautions observed. Call light is within reach. Endorsed to night warehouse selector nurse to continue with care.
[2017-11-20 20:00] VITALS: BP 119/76
[2017-11-20] MEDS: diphenhydrAMINE 50 MG CAPSULE PO PRN (21:01)
[2017-11-20] MEDS: TRAZODONE 50 MG TABLET PO SCH (21:01)
--- NOTE | 2017-11-20 21:01 | NUR ---
PRN BENADRYL 50 MG 1 CAPSULE PO ADMINISTRATION PRN Benadryl 50 mg PO administrated as ordered for insomnia with full glass of water. Patient tolerated well. Safe and calm environment with minimized noises was provided. All needs met. Safety measures in the place: Call light within reach, bed locked in the lowest position, padded rails up x2. Will continue to monitor closely.
--- NOTE | 2017-11-20 22:01 | NUR ---
PRN BENADRYL PO RE-ASSESSMENT PRN Benadryl 50 mg PO administrated at 2020 as ordered was effective. The patient is sleeping. RR: 16. Respirations are even and unlabored. Safe and calm environment with minimized noises was provided. All needs met. Safety measures in the place: Call light within reach, bed locked in the lowest position, and padded rails up x2. Will continue to monitor closely.
--- NOTE | 2017-11-21 | NUR ---
VS REFUSED, CIWA DEFERRED VS refused, CIWA deferred at 0000 due to patient sleeping; to be assessed and scored while patient is awake. Respirations are even and unlabored. RR: 15. Safe and calm environment provided. All needs met. Safety measures in place: Call light within reach, bed locked in lowest position, and padded bed rails up bilaterally. Will continue to monitor closely.
--- NOTE | 2017-11-21 04:00 | NUR ---
VS REFUSED, CIWA DEFERRED VS refused, CIWA deferred at 0400 due to patient sleeping; to be assessed and scored while patient is awake. Respirations are even and unlabored. RR: 14. Safe and calm environment provided. All needs met. Safety measures in place: Call light within reach, bed locked in lowest position, and padded bed rails up bilaterally. Will continue to monitor closely.
[2017-11-21] MEDS: LEVOTHYROXINE SODIUM 112 MCG TABLET PO SCH (06:19)
--- NOTE | 2017-11-21 07:02 | NUR ---
END OF SHIFT NOTE: Endorsed patient is a 32 year old female continues ordered 6 Day Phenobarbital Taper for presented for Benzodiazepines (Xanax), ETOH ([place] Iced Tea), Cocaine, and Cannabis smoke withdrawal. She is tolerated well. The patient is alert and oriented x4, ambulatory with stable gate. The patient is cooperative, with soft, and clear speech. The patient appears with anxious affect and liable mood. Emotional support and reassurance provided to patient. Educated to use of Relaxation Techniques: Deep breathing exercises, guided imagery, and visualization. Encouraged verbalization of feelings, fears, and anxiety. The patient noted disheveled, unkempt with uncombed hair. Encouraged to independently perform hygiene care. During assistant shift supervisor she presented with anxiety, agitation, nervousness, irritability, tremors, nasal congestion, sweating, restlessness, fatigue, and insomnia. CIWA=12 at 2000. VS refused, COWS/CIWA deferred at 0000 and 0400 due to patient sleeping; to be assessed and scored while patient is awake. No S/S of distress noted during my shift. VSWNL. Respirations are unlabored and even. Skin is intact, warm and dry to touch. PRN Benadryl 50 mg PO administrated for insomnia at 2101, and was effective. Safe and calm environment with minimized noises was provided. Skin remains intact, warm and dry to touch. The patient remains compliant with treatment, medications, and diet regime. Encouraged to fluids intake as tolerated. Encouraged to attend group activities. Patient slept for 5 hours, intake 1,500 ml, voided x3. All needs met. Safety measures: Call light within reach, bed in the lowest position and locked, and padded bed rails up x2. Patient endorsed to day shift nurse.
--- NOTE | 2017-11-21 07:40 | NUR ---
START OF SHIFT Rcvd endorse from ongoing nurse, client is in room, a/o x 4, she presents with anxious mood, agitation, fidgety, and flat affect. Client noted with flushed face, enlarged pupil, and tremors. Client reports abdominal cramps, nausea, decreased appetite, pins and needle feeling on both legs, chills, hyper aware of her surroundings, sense of panic, and restlessness. Encourage client to attend group therapy to learn skills to maintain sober. Encourage client to increase PO fluid as tolerated to facilitate detox. Last CIWA 12 @ 1999. PRN Benadryl 50mg PO for sleep, client slept 5 hrs. Seizure precautions in place. Call light within reach.
[2017-11-21] MEDS: MULTIVITAMINS,THERAPEUTIC TABLET PO SCH (08:08)
--- NOTE | 2017-11-21 08:08 | NUR ---
CIWA 12 Client presents with anxiety, agitation, restless, sense of panic, clammy skin, nausea, pins and needle feeling son lower extremities, tremors felt, and fatigue, Phenobarbital 30mg PO administered. call light within reach. Encourage client to attend group therapy for skills to maintain sober.
[2017-11-21 08:10] VITALS: BP 110/66
[2017-11-21] MEDS ORDERED: PHENOBARBITAL 60 MG TABLET PO SCH (09:00)
[2017-11-21 12:00] VITALS: BP 139/84
--- NOTE | 2017-11-21 12:15 | NUR ---
CIWA 10 Client presents with anxiety, agitation, restless, clammy skin, nausea, restless legs, tremors felt, and fatigue. Call light within reach.
[2017-11-21 16:59] VITALS: BP 129/81
--- NOTE | 2017-11-21 17:01 | NUR ---
CIWA 10 Client presents with anxiety, agitation, restless, clammy skin, nausea, tremors felt, and fatigue. Call light within reach9
--- NOTE | 2017-11-21 19:10 | NUR ---
END OF SHIFT Endorse client to incoming nurse, client is in group therapy, a/o x 4, she continues to present with anxious mood, flat affect, and restless legs. Client is compliant with group therapy. Client completed taper medication. Client is schedule for discharge tomorrow am. Adequate PO fluid intake 1600mL, void x 4, stool x 1. Consumes 75% of meals. Last CIWA 10 @ 1600. Seizure precautions in place. Call light within reach.
--- NOTE | 2017-11-21 19:10 | NUR ---
START OF SHIFT NOTE: Endorsed patient is a 32 year old female completed ordered 6 day Phenobarbital Taper for Benzodiazepines (Xanax), ETOH ([place] Iced Tea), Cocaine, and Cannabis smoke withdrawal. The patient remains compliant with treatment, medications, and diet regime. She is alert and oriented x4, cooperative, with soft, clear speech, ambulatory with stable gait. The patient appears with irritable mood and anxious affect. Emotional support and reassuring provided. The patient encouraged to express her feelings. Latest CIWA=10at 1600: The patient presented with moderate withdrawal symptoms of anxiety, agitation, nervousness, irritability, mild lightheaded, sweating, restlessness, tremors, and fatigue. Respirations are even and unlabored. Patient denies SOB, chest pain, and cough. Skin is intact, warm, and dry to touch. Encouraged to fluids intake as tolerated. Encouraged to attend group activities. The patient scheduled for discharging tomorrow. Safe and calm environment with minimized noises was provided. All needs met. Safety measures: Call light within reach, bed is locked in lowest position, and padded bed rails up x2. Thepatient endorsed by outgoing day shift nurse.
[2017-11-21 20:00] VITALS: BP 138/85
--- NOTE | 2017-11-21 20:00 | NUR ---
CIWA ASSESSMENT: CIWA=12: Patient presented with anxiety, agitation, depression, nervousness, irritability, sweating, very mild lightheaded, tremors, that can be felt, not observe, nasal congestion, and fatigue. Safe and calm environment with minimized noises was provided. All needs met. Safety measures in place: Call light within reach, bed is locked in lowest position, and padded bed rails up bilaterally.
[2017-11-21] MEDS: diphenhydrAMINE 50 MG CAPSULE PO PRN (21:14)
[2017-11-21] MEDS: TRAZODONE 50 MG TABLET PO SCH (21:14)
--- NOTE | 2017-11-21 21:14 | NUR ---
PRN BENADRYL 50 MG 1 CAPSULE PO ADMINISTRATION. PRN Benadryl 50 mg PO administrated for insomnia at 2114 with full glass of water, as ordered. Patient tolerated well. Safe and calm environment with minimized noises was provided. All needs met. Safety measures in the place: Call light within reach, bed locked in the lowest position, and padded rails up x2. Will continue to monitor closely.
--- NOTE | 2017-11-21 22:14 | NUR ---
PRN BENADRYL PO RE-ASSESSMENT Patient is sleeping. RR 14. Respirations even and unlabored. PRN Benadryl 50 mg PO administrated for insomnia at 2114 was effective. Safe and calm environment with minimized noises was provided. All needs met. Safety measures in the place: Call light within reach, bed locked in the lowest position, and padded rails up x2. Will continue to monitor closely.
[2017-11-21] MEDS ORDERED: DIPH50CA37 PO (23:30)
[2017-11-22] VITALS: BP 102/59
--- NOTE | 2017-11-22 | NUR ---
CIWA ASSESSMENT: CIWA=9: Patient presented with anxiety, agitation, depression, nervousness, irritability, sweating,tremors, that can be felt, not observe, nasal congestion, and fatigue.
[2017-11-22 04:00] VITALS: BP 98/61
--- NOTE | 2017-11-22 04:00 | NUR ---
CIWA ASSESSMENT: CIWA=9: Patient presented with anxiety, agitation, depression, nervousness, irritability, sweating,tremors, that can be felt, not observe, nasal congestion, and fatigue. Calm and safety environment with minimized noises was provided. All needs met. Safety measures: Call light within reach, bed in the lowest position locked, padded rails up x2.
[2017-11-22] MEDS: LEVOTHYROXINE SODIUM 112 MCG TABLET PO SCH (06:11)
--- NOTE | 2017-11-22 06:56 | NUR ---
END OF SHIFT NOTE: Endorsed patient scheduled for discharging today. The patient is a 27 year old male presented for Benzodiazepines (Xanax), Alcohol (Vodka), Opioid (Heroin), and Methamphetamine withdrawal. Patient has no withdrawal symptoms. VSWNL. Respirations are even and unlabored. Patient denies SOB, chest pain, and cough. Skin is warm, and dry to touch. Multiple scabs from drugs injections noted on patient's Face and BUE. No PRN Medications administrated during my shift. Encouraged to fluids intake as tolerated. Safe and calm environment with minimized noises was provided. Patient slept for 7 hours, [id number] ml, voided x1. All needs met. Safety measures: Call light within reach, bed in the lowest position and locked, padded rails up x2. Patient endorsed to day shift nurse. Addendum: 11/22/17 at 0700 by JOCELYN ZEE RN wrong patient
--- NOTE | 2017-11-22 07:00 | NUR ---
END OF SHIFT NOTE: Presented patient is a 32 year old female scheduled for discharging today. The patient completed 5 day Phenobarbital taper ordered Benzodiazepines (Xanax), Alcohol ([place] Iced Tea), Cocaine,and Cannabis smoke withdrawal. The patient tolerated well. No S/S of ASE noted. Patient remains compliant with treatment, medications, and diet regime. Withdrawal symptoms was closely monitored. Patient is alert and orientedx4, cooperative. Her mood and affect are depressed and anxious. 1. CIWA=12 at 2000: Patient presented with anxiety, agitation, depression, nervousness, irritability, sweating, very mild lightheaded, tremors, that can be felt, not observe, nasal congestion, and fatigue. 2. CIWA=9 at 0000: Patient presented with anxiety, agitation, depression, nervousness, irritability, sweating, tremors, that can be felt, not observe, nasal congestion, and fatigue. 3. CIWA=9 at 0400: Patient presented with anxiety, agitation, depression, nervousness, irritability, sweating, tremors, that can be felt, not observe, nasal congestion, and fatigue. VSWNL. Skin remains warm, and dry to touch. Encouraged to increase oral fluids intake as tolerated. Encouraged to attend groups activities. PRN Benadryl 50 mg PO administrated for insomnia at 2113, and was effective. Calm and safety environment with minimized noises was provided. Patient slept 7 hours, intake 1,151 ml, voided x2. All needs met. Safety measures: Call light within reach, bed in the lowest position locked, padded rails up x2. Patient endorsed to day shift nurse.
--- NOTE | 2017-11-22 07:30 | NUR ---
Start of Shift Supervisor Sleeping Bag Department received report on 32 year old female admitted to [facility] on 11/15/17 for medical management of ETOH and Benzodiazepine withdrawals. Pr endorses NKA, full code and regular diet. Pt has a PMH of withdrawal induced seizures in 2014, Thyroid Cancer with Thyroidectomy. Pt also positive for Heroin OD in 2009 and being placed on a 5150 at that time. Pt with PPH of anxiety and depression. Pt has completed the Phenobarbital taper and has last CIWA as 9, per NOC report. Pt administered Benadryl(Insomnia) on NOC as PRN medication. Pt is prepared for discharge today. Supervisor Sleeping Bag Department encounters pt in pts room. Pt is A/O x4 and makes needs known. Clear and linear thought process with clear speech pattern. Pt with an anxious affect and depressed mood. Pt is anxious about, getting it right this time, and I am afraid I cant do it. Pt is cooperative, but anxious and restless. Bed in low position wheels locked and side rails up x2. Will continue to monitor, support and encourage according to plan of care.
[2017-11-22 08:10] VITALS: BP 143/91
[2017-11-22] MEDS: MULTIVITAMINS,THERAPEUTIC TABLET PO SCH (08:34)
--- NOTE | 2017-11-22 09:53 | NUR ---
Discharge Pt is educated on all aspects of discharge packet. Pt educated on medication indication, timing, name and route of medication. Pt provided prescriptions. Pt educated on discharge education, including discharge diagnosis. Pt educated on importance of continued follow-up care and need for continued sobriety. Pt had home medications and all personal belongings retuned. Pt is A/O x4 and makes her needs known. Linear thought process and clear speech pattern. Pt is cooperative with an anxious affect and depressed ann. Pt is anxious about her ability to be successful. Pt is polite and pleasant. Pt denies SI/HI or A/VH, or any other associated symptoms. Pt ambulated to exit and escorted by staff.
== END 2017-11-22 09:53 | disposition home or self-care (01) | DRG 895 ==
LOC: SRC 19:48
PROVIDERS: ADMIT Family Medicine Addiction Medicine; ATTEND Family Medicine Addiction Medicine
PROC: HZ2ZZZZ Detoxification Services for Substance Abuse Treatment (ICD-10-PCS; principal; 2017-11-15)
PROC: HZ41ZZZ Group Counseling for Substance Abuse Treatment, Behavioral (ICD-10-PCS; 2017-11-17)
PROC: HZ31ZZZ Individual Counseling for Substance Abuse Treatment, Behavioral (ICD-10-PCS; 2017-11-18)
DX: F13.230 Sedative, hypnotic or anxiolytic dependence with withdrawal, uncomplicated (principal); F14.229 Cocaine dependence with intoxication, unspecified; F10.10 Alcohol abuse, uncomplicated; Y90.0 Blood alcohol level of less than 20 mg/100 ml; E89.0 Postprocedural hypothyroidism; Z85.850 Personal history of malignant neoplasm of thyroid; Z81.3 Family history of other psychoactive substance abuse and dependence; Z81.8 Family history of other mental and behavioral disorders; F17.210 Nicotine dependence, cigarettes, uncomplicated; G47.00 Insomnia, unspecified; F32.9 Major depressive disorder, single episode, unspecified; F11.90 Opioid use, unspecified, uncomplicated
CPT/HCPCS: 36415; 70030-TC; 80307; 80346; 80349; 83690; 83735; 84443; 84703; 85025; 86592; 86705; 86803; 87340; 87806; G0480; J8499; Q0163